=== PATIENT | female | born 1955 | race Caucasian/White ===

== ENCOUNTER 2018-07-11 21:22 | Emergency (ER) | payer MEDICAID, OTHER ==
[~2018-07-11] VITALS: Ht 149.9 cm; Wt 55.8 kg
--- NOTE | 2018-07-11 21:48 | NUR ---
Pt left with her before written ACI could be given. Pt stated she has a ENT and will follow up. Pt was given verbal ACI by . Stressed follow up or return to ER for worsening s/s.
== END 2018-07-11 21:51 | disposition home or self-care (01) ==
LOC: ER 21:24
DX: S00.412A Abrasion of left ear, initial encounter (principal); H92.22 Otorrhagia, left ear; X58.XXXA Exposure to other specified factors, initial encounter; Y93.89 Activity, other specified; Y92.89 Other specified places as the place of occurrence of the external cause; Y99.8 Other external cause status
CPT/HCPCS: A4663